=== PATIENT | female | born 1980 | race American Indian/Alaskan Native ===

== ENCOUNTER 2018-04-24 06:57 | Emergency (ER) | payer OTHER ==
[2018-04-24 07:27] VITALS: BP 139/83
[2018-04-24] MEDS ORDERED: DELTASONE PO ONE (07:39)
[2018-04-24] MEDS ORDERED: TORADOL IM ONE (07:39)
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
== END 2018-04-24 08:07 | disposition home or self-care (01) ==
LOC: ED 06:57
DX: S39.012A Strain of muscle, fascia and tendon of lower back, initial encounter (principal); Z90.89 Acquired absence of other organs; X58.XXXA Exposure to other specified factors, initial encounter; Y93.89 Activity, other specified; Y92.89 Other specified places as the place of occurrence of the external cause; Y99.8 Other external cause status
CPT/HCPCS: 96372; 99282; J1885; J7512

== ENCOUNTER 2018-06-28 07:52 | Emergency (ER) | payer OTHER ==
[2018-06-28 07:56] VITALS: BP 123/89
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
== END 2018-06-28 10:00 | disposition home or self-care (01) ==
LOC: ED 07:52
DX: S40.261A Insect bite (nonvenomous) of right shoulder, initial encounter (principal); F17.200 Nicotine dependence, unspecified, uncomplicated; F12.10 Cannabis abuse, uncomplicated; Z90.89 Acquired absence of other organs; W57.XXXA Bitten or stung by nonvenomous insect and other nonvenomous arthropods, initial encounter; Y93.89 Activity, other specified; Y92.89 Other specified places as the place of occurrence of the external cause; Y99.8 Other external cause status
CPT/HCPCS: 99281